=== PATIENT | female | born 1990 | race Caucasian/White ===

== ENCOUNTER 2020-06-21 03:42 | Emergency (ER) | payer SELFPAY ==
[2020-06-21 04:23] VITALS: BMI 29.2
[2020-06-21 06:13] LABS: URINE BARBITURATES NEGATIVE ng/ml (CUTOFF=200)
[2020-06-21 06:14] LABS: METHADONE, UR NEGATIVE ng/ml (CUTOFF=300); PHENCYCLIDINE,URINE NEGATIVE ng/ml (CUTOFF=25)
[2020-06-21 06:17] LABS: COCAINE, UR POSITIVE ng/ml (CUTOFF=300); OPIATES, URI POSITIVE ng/ml (CUTOFF=300); URINE AMPHETAMINES POSITIVE ng/ml (CUTOFF=500); URINE BENZODIAZEPINES POSITIVE ng/ml (CUTOFF=200)
[2020-06-21 06:27] VITALS: BP 121/76; PULSE 72; TEMP 97.3
== END 2020-06-21 06:42 | disposition home or self-care (01) ==
LOC: JER 03:42
DX: T40.2X4A Poisoning by other opioids, undetermined, initial encounter (principal); S06.0X0A Concussion without loss of consciousness, initial encounter
CPT/HCPCS: 80307; 99284-25